=== PATIENT | male | born 1935 | race Caucasian/White ===

== ENCOUNTER 2017-01-04 09:57 | Emergency (ER) | payer OTHER, BC ==
[~2017-01-04] VITALS: Ht 180.3 cm; Wt 104.1 kg
[~2017-01-04 09:57] MED LIST: AFRIN,GENASAL D15 ML BOTH NARES; ALEVE220 MG PO; AMIODARONE HCL200 MG PO; AVODART0.5 MG PO; B-123000 MCG PO; BROMOCRIPTINE2.5 MG PO; CARVEDILOL12.5 MG PO; CARVEDILOL6.25 MG PO; COREG6.25 M1 PO; CORTEF10 MG PO; COZAAR100 MG PO; CYANOCOBALAM1000 MCG PO; Coreg PO; Cortef PO; Cozaar PO; DECADRON1 MG PO; DECLOMYCIN150 MG PO; DEPO-TESTOS100 MG/ML IM; DEPO-TESTOS200 MG/ML IM; Depo-Testosterone IM; FLOMAX0.4 MG PO; FUROSEMIDE20 MG PO; IMODIUM MS REL1 EACH PO; KLONOPIN0.5 M1 PO; LEVOTHYROXINE75 MCG PO; LOSARTAN POTAS100 MG PO; Levothroid,Synthroid PO; MUCINEX600 MG PO; NASAL SPRAY30 M4 BOTH NARES; SIMVASTATIN40 MG PO; SODIUM CHLORIDE1 G1 PO; SYNTHROID75 MCG PO; Sodium Chloride PO; TAMSULOSIN HCL0.4 MG PO; TESTOSTERONE IJ; TRAMADOL HCL50 MG PO; TYLENOL EXTRA500 MG PO; VITAMIN B12-FO1 EACH PO; XARELTO15 MG PO; ZOCOR40 MG PO; Zocor PO
[2017-01-04 11:05] LABS: EOSINOPHIL (%) 1.4 % (0-5); EOSINOPHIL COUNT 0.1 K/uL (0-0.3); HEMATOCRIT 43.3 % (38.0-50.0); IMMATURE GRANULOCYTE (%) 0.5 % (0.0-0.7); INSTRUMENT ABS NEUTROPHIL CT 3.2 K/uL; MCH 29.6 PG (29.0-34.0); MCHC 33.3 G/DL (30.0-36.0); MCV 88.9 FL (86-99); MEAN PLAT.VOLUME 10.9 uM^3 (9.0-12.4); MONOCYTE (%) 8.7 % (3-12); MONOCYTE COUNT 0.5 K/uL (0-0.8); NEUTROPHIL (%) 54.9 % (45-76); NEUTROPHIL COUNT 3.2 K/uL (1.8-6.4); PLATELET COUNT 156 K/uL (156-360); RBC DIS.WIDTH-CV 14.4 % (11.8-14.6); RBC DIS.WIDTH-SD 46.5 % (39-53); RED BLOOD COUNT 4.87 M/uL (4.00-5.50); WHITE BLOOD COUNT 5.8 K/uL (4.1-10.2)
[2017-01-04 11:14] LABS: CHLORIDE 104 mEq/L (99-109); POTASSIUM 4.1 mEq/L (3.7-5.4); SODIUM 138 mEq/L (136-147)
[2017-01-04 11:15] LABS: INTER. NORMALIZED RATIO 1.5; MAGNESIUM 2.1 mg/dL (1.3-2.7); PROTHROMBIN TIME 15.4 (9.2-11.2); PTT 34.1 (25-32)
[2017-01-04 11:16] LABS: GLUCOSE 107 mg/dL (70-99)
[2017-01-04 11:17] LABS: ANION GAP 11 MEQ/L (2-14)
[2017-01-04 11:20] LABS: GFR ESTIMATE (CALCULATED) 56 mL/min/
[2017-01-04 11:21] LABS: UREA NITROGEN (BUN) 23 mg/dL (9-23)
[2017-01-04 11:28] LABS: TROP-I INTERPRETATION NEGATIVE; TROPONIN-I < 0.01 ng/mL (0.0-0.30)
[2017-01-04 12:22] LABS: ADD MIUA? YES; BILIRUBIN NEGATIVE; BLOOD SMALL; COLOR YELLOW ((YELLOW)); GLUCOSE (STRIP) NEGATIVE; KETONES NEGATIVE; LEUKOCYTES NEGATIVE; NITRITE NEGATIVE; PROTEIN (STRIP) NEGATIVE; SPECIFIC GRAVITY 1.012 (1.000-1.030); UROBILINOGEN 0.2 MG/DL (0.2-1.0)
[2017-01-04 12:32] LABS: BACTERIA RARE /HPF; EPITHELIAL CELLS RARE /HPF; MUCUS TRACE /LPF; RED BLOOD CELLS 0-5 /HPF (0-5); UCUL ADDED? NO; WHITE BLOOD CELLS 0-5 /HPF (0-5)
[2017-01-04 13:53] VITALS: BP 132/78
== END 2017-01-04 13:54 | disposition home or self-care (01) ==
LOC: EME 09:57
PROVIDERS: Emergency Medicine
DX: R55 Syncope and collapse (principal); E27.40 Unspecified adrenocortical insufficiency; Z91.14 Patient's other noncompliance with medication regimen; I48.91 Unspecified atrial fibrillation; Z79.01 Long term (current) use of anticoagulants; I11.0 Hypertensive heart disease with heart failure; I50.9 Heart failure, unspecified; E78.5 Hyperlipidemia, unspecified; Z87.891 Personal history of nicotine dependence; Z86.018 Personal history of other benign neoplasm
CPT/HCPCS: 70450; 71010; 80048; 81003; 82150; 83690; 83735; 84484; 85025; 85610; 85730; 86900; 86901; 93005; 99281; 99285; G0480; J1720; J7030

== ENCOUNTER 2017-11-01 13:31 | Emergency (ER) | payer OTHER, BC ==
[~2017-11-01] VITALS: Ht 180.3 cm; Wt 100.3 kg
[2017-11-01] MEDS ORDERED: KEFLEX500 MG PO (18:49)
[2017-11-01 19:09] VITALS: BP 123/85
== END 2017-11-01 19:19 | disposition home or self-care (01) ==
LOC: EME 13:31
DX: L03.116 Cellulitis of left lower limb (principal); E78.5 Hyperlipidemia, unspecified; I10 Essential (primary) hypertension; Z79.01 Long term (current) use of anticoagulants; Z87.891 Personal history of nicotine dependence; Z98.890 Other specified postprocedural states; Z89.422 Acquired absence of other left toe(s); Z90.49 Acquired absence of other specified parts of digestive tract; Z86.018 Personal history of other benign neoplasm; Z88.8 Allergy status to other drugs, medicaments and biological substances
CPT/HCPCS: 73630; 73700; 99281; 99285

== ENCOUNTER 2018-04-25 07:07 | Emergency (ER) | payer OTHER, BC ==
[~2018-04-25] VITALS: Ht 180.3 cm; Wt 109.6 kg
[~2018-04-25 07:07] MED LIST changes: +KEFLEX500 MG PO
[2018-04-25 08:01] LABS: BASOPHIL (%) 0.6 % (0-1); EOSINOPHIL (%) 1.6 % (0-5); EOSINOPHIL COUNT 0.1 K/uL (0-0.3); HEMATOCRIT 40.8 % (38.0-50.0); HEMOGLOBIN 13.7 G/DL (12.5-16.6); IMMATURE GRANULOCYTE (%) 0.2 % (0.0-0.7); LYMPHOCYTE (%) 37.9 % (15-42); LYMPHOCYTE COUNT 1.9 K/uL (1.0-2.8); MCH 30.1 PG (29.0-34.0); MCHC 33.6 G/DL (30.0-36.0); MCV 89.7 FL (86-99); MONOCYTE (%) 6.4 % (3-12); MONOCYTE COUNT 0.3 K/uL (0-0.8); NEUTROPHIL (%) 53.3 % (45-76); NEUTROPHIL COUNT 2.7 K/uL (1.8-6.4); PLATELET COUNT 186 K/uL (156-360); RBC DIS.WIDTH-CV 13.5 % (11.8-14.6); RBC DIS.WIDTH-SD 43.8 % (39-53); RED BLOOD COUNT 4.55 M/uL (4.00-5.50)
[2018-04-25 08:09] LABS: INTER. NORMALIZED RATIO 1.2
[2018-04-25 08:11] LABS: PTT 28.9 SEC (25-37)
[2018-04-25 08:27] LABS: CHLORIDE 99 MEQ/L (99-109); POTASSIUM 3.8 MEQ/L (3.7-5.4); SODIUM 135 MEQ/L (136-147)
[2018-04-25 08:32] LABS: CREATININE 1.1 MG/DL (0.6-1.3); GFR ESTIMATE (CALCULATED) > 59 mL/min/ (58.99-99999); GLUCOSE 108 mg/dL (70-99); UREA NITROGEN (BUN) 17 mg/dL (9-23)
[2018-04-25 09:10] VITALS: BP 121/75
== END 2018-04-25 09:11 | disposition home or self-care (01) ==
LOC: EME 07:07
PROVIDERS: Emergency Medicine
PROC: 2Y41X5Z Packing of Nasal Region using Packing Material (ICD-10-PCS; principal; 2018-04-25)
DX: R04.0 Epistaxis (principal); I10 Essential (primary) hypertension; E78.5 Hyperlipidemia, unspecified; Z87.891 Personal history of nicotine dependence; Z86.2 Personal history of diseases of the blood and blood-forming organs and certain disorders involving the immune mechanism; Z86.79 Personal history of other diseases of the circulatory system; Z98.890 Other specified postprocedural states; Z86.018 Personal history of other benign neoplasm; Z90.49 Acquired absence of other specified parts of digestive tract; Z88.8 Allergy status to other drugs, medicaments and biological substances
CPT/HCPCS: 80048; 85025; 85610; 85730; 99281; 99285